=== PATIENT | female | born 1995 | race Caucasian/White ===

== ENCOUNTER 2022-09-18 11:38 | Observation (INO) | payer OTHER ==
[~2022-09-18] VITALS: Ht 160 cm; Wt 74.8 kg
[~2022-09-18 11:38] MED LIST: CLIN1PAD2 TOP; SPIR50TA4 PO; TRET0.0516 TOP; ceFAZolin SOD 2 GM in IV 1 EA IV ONE
[2022-09-18] MEDS ORDERED: LIDOCAINE 1% SDV 5ML VIAL SC PRN (12:05)
[2022-09-18] MEDS ORDERED: LR 1,000 ML IV SCH ×2 (12:05→18:20)
[2022-09-18] MEDS ORDERED: HEPARIN SOD (PORCINE) 5000UNITS/ML 1ML VIAL/SYRINGE SQ ONE (12:20)
[2022-09-18] MEDS ORDERED: BUPIVACAINE HCL 0.25% 10ML VIAL As Ordered ONE (14:19)
[2022-09-18] MEDS ORDERED: BUPIVACAINE LIPOSOME/PF 1.3% 20ML VIAL (13.3MG/ML)(EXPAREL) As Ordered ONE (14:20)
[2022-09-18] MEDS ORDERED: GENTAMICIN SULF 80MG/2ML VIAL As Ordered ONE (14:20)
[2022-09-18] MEDS ORDERED: ROCURONIUM BROMIDE 50MG/5ML VIAL As Ordered ONE ×2 (15:09→15:52)
[2022-09-18] MEDS ORDERED: LIDOCAINE 2% 100MG/5ML SDV (FOR ANES.) As Ordered ONE (15:09)
[2022-09-18] MEDS ORDERED: SUGAMMADEX SODIUM 500 MG/5 ML VIAL (BRIDION) As Ordered ONE (15:09)
[2022-09-18] MEDS ORDERED: fentaNYL 100 MCG/2 ML INJECTION As Ordered ONE (15:09)
[2022-09-18] MEDS ORDERED: ACETAMINOPHEN 1000MG 100ML IV BAG As Ordered ONE (15:09)
[2022-09-18] MEDS ORDERED: ONDANSETRON 4MG 2ML VIAL As Ordered ONE (15:09)
[2022-09-18] MEDS ORDERED: MIDAZOLAM INJ 2MG/2ML VIAL As Ordered ONE (15:09)
[2022-09-18] MEDS ORDERED: propofoL 200 MG/20 ML VIAL As Ordered ONE (15:09)
[2022-09-18] MEDS ORDERED: HYDROmorphone HCL 2MG/ML 1ML VIAL As Ordered ONE (15:15)
[2022-09-18] MEDS ORDERED: oxyCODONE 5MG TAB PO PRN (18:20)
[2022-09-18] MEDS ORDERED: fentaNYL 100 MCG/2 ML INJECTION IV PRN (18:20)
[2022-09-18] MEDS ORDERED: HYDROMORPHONE HCL 0.5 MG/ 0.5 ML SYRINGE IV PRN (18:20)
[2022-09-18] MEDS ORDERED: ONDANSETRON 4MG 2ML VIAL IV PRN ×2 (18:20→18:30)
[2022-09-18] MEDS ORDERED: METOCLOPRAMIDE INJ 10MG/2ML VIAL IV PRN (18:20)
[2022-09-18] MEDS ORDERED: PERCOCET 5MG/325MG TAB PO PRN (18:30)
[2022-09-18] MEDS ORDERED: traMADol 50 MG TAB PO PRN (18:30)
[2022-09-18] MEDS ORDERED: ACETAMINOPHEN TAB 650MG DOSE (2X325MG) PO PRN (18:30)
[2022-09-18] MEDS: LR 1,000 ML IV SCH ×2 (19:20→22:42)
[2022-09-18 20:15] VITALS: BP 132/88
[2022-09-18 20:30] VITALS: BP 126/84
[2022-09-18 20:55] VITALS: BP 126/85
[2022-09-18 21:42] VITALS: BP 126/84
[2022-09-18] MEDS: ceFAZolin SOD 1 GM in D5W MINI-BAG PLUS 50 ML IV SCH (22:41)
[2022-09-18 22:44] VITALS: BP 125/84
[2022-09-19 01:24] VITALS: BP 125/84
[2022-09-19 05:21] VITALS: BP 124/81
[2022-09-19] MEDS: ceFAZolin SOD 1 GM in D5W MINI-BAG PLUS 50 ML IV SCH (06:15)
[2022-09-19 10:00] VITALS: BP 123/82
[2022-09-19] MEDS ORDERED: PERCOCET PO (11:18)
== END 2022-09-19 13:55 | disposition home or self-care (01) ==
LOC: M SDC 11:38 → M ED INP 11:39 → M MS5PR 20:05
PROVIDERS: ADMIT Plastic Surgery Surgery of the Hand; ATTEND Plastic Surgery Surgery of the Hand
DX: N62 Hypertrophy of breast (principal); M54.6 Pain in thoracic spine; M54.2 Cervicalgia; N64.81 Ptosis of breast; L70.9 Acne, unspecified; Z79.899 Other long term (current) drug therapy; Z79.2 Long term (current) use of antibiotics
CPT/HCPCS: 19318; 81025; 88305; 96374; 96375; 96376; C9290; J0131; J0690; J1100; J1170; J1580; J2250; J2405; J2765; J3010; S0020